=== PATIENT | female | born 2000 | race Caucasian/White ===

== ENCOUNTER 2021-08-30 12:47 | Emergency (ER) | payer OTHER | END 2021-08-30 15:28 | disposition short-term general hospital (02) | LOC: MADERS 12:47 | DX: O99.891 Other specified diseases and conditions complicating pregnancy (principal); N94.89 Other specified conditions associated with female genital organs and menstrual cycle; Y04.2XXA Assault by strike against or bumped into by another person, initial encounter; Z3A.32 32 weeks gestation of pregnancy | CPT/HCPCS: 99284 ==

== ENCOUNTER 2023-11-30 11:31 | Emergency (ER) | payer OTHER ==
[2023-11-30] MEDS ORDERED: Ondansetron ODT 4 MG TAB ONE (12:12)
== END 2023-11-30 12:45 | disposition home or self-care (01) ==
LOC: MADERS 11:31
DX: B34.9 Viral infection, unspecified (principal)
CPT/HCPCS: 87400; 87426; 99283; Q0162